=== PATIENT | female | born 1985 | race Caucasian/White ===

== ENCOUNTER → 2017-06-26 | Outpatient (CLI) | payer OTHER ==
[~2017-06-26] MED LIST: BIRTH CONTROL PILL PO; GADOBUTROL 7.5 MMOL/7.5 ML PFS ONE
== END | disposition home or self-care (01) ==
LOC: RAD 07:10
PROVIDERS: ATTEND Registered Nurse
DX: G35 Multiple sclerosis (principal); R90.82 White matter disease, unspecified; G95.89 Other specified diseases of spinal cord
CPT/HCPCS: 70553; 72156; 72157; A9585